=== PATIENT | female | born 1990 | race African-American/Black ===

== ENCOUNTER 2016-10-18 16:58 | Emergency (ER) | payer OTHER ==
--- NOTE | ~2016-10-18 | EKG ---
PATIENT: DON GUEVARA UNIT #: [id number] Ventricular Rate: 69 BPM Atrial Rate: 69 BPM P-R Interval: 130 ms QRS Duration: 70 ms Q-T Interval: 372 ms QTC Calculation(Bezet): 398 ms P [place]: 16 degrees Calculated R [place]: 19 degrees Calculated T [place]: 4 degrees Diagnosis Line: Normal sinus rhythm with sinus arrhythmia Diagnosis Line: Poor R wave progression questionable lead position Diagnosis Line: or body habitus Otherwise normal ECG Diagnosis Line: No previous ECGs available Diagnosis Line: Confirmed by MYAH PEDROZA MD ([id number]) on 10/21/2016 Diagnosis Line: 5:35:35 PM INTERPRETING MD: YOVANY DELGADILLO
[~2016-10-18 16:58] MED LIST: ACETAMINOPHEN PO; DICYCLOMINE HCL20 MG PO; NORCO 5/325 TAB1 TAB PO; YASMIN 28 TABLE1 TAB PO
[2016-10-18 17:05] LABS: BASOPHIL# 0.1 X10e3 (0-0.3); EOSINOPHIL# 0.1 X10e3 (0-0.7); EOSINOPHIL% 1.8 % (0.0-7.0); HEMATOCRIT 41.2 % (35.0-45.0); HEMOGLOBIN 13.8 gm/dL (12.0-16.0); LYMPHOCYTE# 3.1 X10e3 (1.0-3.5); MEAN CELL VOLUME 83.8 FL (83-96); MEAN CORPUSCULAR HGB CONC 33.5 g/dL (30-36); MEAN PLATELET VOLUME 7.4 FL (6.5-11.5); MONOCYTE# 0.8 X10e3 (0-1.0); MONOCYTE% 10.1 % (3.0-12.0); NEUTROPHIL# 3.8 X10e3 (1.5-7.1); NEUTROPHIL% 48.1 % (40-75); PLATELET COUNT 367 X10e3 (140-420); RED BLOOD COUNT 4.92 X10e (3.90-5.30); RED CELL DISTRIBUTION WIDTH 13.1 % (11.0-15.5)
[2016-10-18 17:09] LABS: DIFF IND NO
[2016-10-18 17:32] LABS: BLOOD UREA NITROGEN 13 mg/dL (9-23); BUN/CREATININE RATIO 16.25; CALCIUM SERUM 9.2 mg/dL (8.4-10.2); CARBON DIOXIDE 25 mmol/L (22-31); CHLORIDE 107 mmol/L (100-111); CREATININE SERUM 0.8 mg/dL (0.6-1.4); GLOM FILT RATE Estimated ABOVE60 mL/min (>60); GLUCOSE FASTING 98 mg/dL (70-110); POTASSIUM 4.2 mmol/L (3.5-5.1); SODIUM 138 mmol/L (135-145)
[2016-10-18 23:45] LABS: POC - CKMB <1.0 ng/mL (0.0-7.9)
[2016-10-18 23:46] LABS: POC - MYOGLOBIN 21.8 ng/mL (0.0-169.0); POC - TROPONIN <0.05 ng/mL (<=0.05)
== END 2016-10-18 18:09 | disposition home or self-care (01) ==
LOC: SED 16:58
PROVIDERS: Nurse Practitioner Family
DX: R00.2 Palpitations (principal)
CPT/HCPCS: 36415; 80048; 82553; 83874; 84484; 85025; 93005; 99283